=== PATIENT | female | born 1965 | race Hispanic/Latino ===

== ENCOUNTER 2017-05-25 12:26 | Inpatient (IN) | payer BC ==
[2017-05-25] VITALS (7 sets, daily range): BP systolic 129–149; BP diastolic 66–82
[~2017-05-25] VITALS: Ht 162.6 cm; Wt 136.3 kg
[2017-05-25] MEDS ORDERED: IOPAMIDOL-370 100 ML VIAL IV ONE (14:13)
[2017-05-25] MEDS ORDERED: LIDOCAINE HCL 2% 20ML ONE (14:14)
[2017-05-25] MEDS ORDERED: HEPARIN SODIUM 1000UNIT/ML 10ML VIAL ONE (14:14)
[2017-05-25] MEDS ORDERED: IOPAMIDOL-370 75 ML VIAL IV ONE (14:14)
[2017-05-25] MEDS ORDERED: BIVALIRUDIN 250 MG/VIAL IV ONE ×2 (14:19→15:01)
[2017-05-25] MEDS ORDERED: MIDAZOLAM HCL 1 MG/ML 2ML VIAL ONE (15:02)
[2017-05-25] MEDS ORDERED: ASPI-1012 PO (15:26)
[2017-05-25] MEDS ORDERED: ATOR10TA69 PO (15:26)
[2017-05-25] MEDS ORDERED: CLOP75TA32 PO (15:26)
[2017-05-25] MEDS ORDERED: PANT40TA25 PO (15:26)
[2017-05-25] MEDS ORDERED: METO25TA6 PO (15:26)
[2017-05-25] MEDS ORDERED: ISOS30TA6 PO (15:26)
[2017-05-25] MEDS ORDERED: INSU100V12 SQ ×2 (15:26→15:27)
[2017-05-25] MEDS ORDERED: FENTANYL CITRATE PF 50 MCG/1 ML 2ML VIAL ONE (15:44)
[2017-05-25] MEDS ORDERED: NITROGLYCERIN 50 MG/D5% WATER 1 BOT ONE (15:51)
[2017-05-25] MEDS ORDERED: LABETALOL HCL 5 MG/ML 20ML VIAL IV ONE (16:08)
[2017-05-25] MEDS ORDERED: ACETAMINOPHEN 325 MG TAB PO PRN (16:15)
[2017-05-25] MEDS ORDERED: PHARMACY COMMUNICATION MISC SCH ×2 (16:15→17:00)
[2017-05-25] MEDS ORDERED: BUMETANIDE 0.25 MG/ML 10 ML 80 ML IV SCH (16:30)
[2017-05-25] MEDS ORDERED: NITROGLYCERIN 50 MG/D5% WATER 250 BOT IV PRN (17:00)
[2017-05-25] MEDS ORDERED: DEXTROSE 50%-WATER 50 ML DISP.SYRIN IV PRN (17:00)
[2017-05-25] MEDS ORDERED: NITROGLYCERIN 0.4 MG SL TAB SL PRN (17:00)
[2017-05-25] MEDS ORDERED: GLUCAGON 1MG KIT 1 MG ML IM PRN (17:00)
[2017-05-25 18:05] LABS: ABG BASE EXCESS -0.5 mmol/L (-2.0-3.0); ABG HCO3 25.6 mmol/L (21.0-28.0); ABG OXYGEN SATURATION 91.9 % (95.0-99.0); ABG PCO2 48 mmHg (32-45)
[2017-05-25 19:58] LABS: CREATININE 2.8 mg/dL (0.5-1.5); MAGNESIUM 1.7 mg/dL (1.80-2.40); POTASSIUM 4.4 mmol/L (3.5-5.1)
[2017-05-25] MEDS ORDERED: METOPROLOL TARTRATE 25 MG TAB PO SCH (21:00)
[2017-05-25] MEDS: ATORVASTATIN CALCIUM 20 MG TABLET PO SCH (22:04)
[2017-05-25] MEDS: RANOLAZINE 500 MG TAB.SR.12H PO SCH (22:04)
[2017-05-25] MEDS: TICAGRELOR 90 MG TABLET PO SCH (22:04)
[2017-05-25] MEDS: INSULIN HUMULIN R 100 UNIT/ML 3ML SQ SCH (22:06)
[2017-05-25] MEDS: MORPHINE SULFATE 5 MG/ML VIAL IV PRN (23:36)
[2017-05-26] VITALS (24 sets, daily range): BP systolic 90–180; BP diastolic 47–98
[2017-05-26 04:07] LABS: ABG BASE EXCESS 3.2 mmol/L (-2.0-3.0); ABG HCO3 28.6 mmol/L (21.0-28.0); ABG OXYGEN SATURATION 87.9 % (95.0-99.0); ABG PCO2 46 mmHg (32-45)
[2017-05-26 04:08] LABS: HEMATOCRIT 28.3 % (36-48); MEAN CORPUSCULAR HEMOGLOBIN 30.4 pg (27.0-33.0); MEAN CORPUSCULAR HGB CONC 34.9 g/dL (32.0-36.0); MEAN CORPUSCULAR VOLUME 87.1 fL (79-99); NUCLEATED RED BLOOD CELLS 0.1 % (0.0-0.19); PLATELET COUNT (AUTO) 263 K/uL (130-400); RED BLOOD CELL COUNT(AUTO) 3.25 MIL/uL (4.00-5.50); RED CELL DISTRIBUTION WIDTH 12.8 % (11.0-15.5); WHITE BLOOD COUNT (AUTO) 8.2 K/uL (4.8-10.8)
[2017-05-26 04:15] LABS: CREATININE 2.5 mg/dL (0.5-1.5)
[2017-05-26 04:40] LABS: B-TYPE NATRIURETIC PEPTIDE 578 pg/mL (0-100)
[2017-05-26 05:14] LABS: PROTEIN,URINE RANDOM 129.9 mg/dL (0-11.9)
[2017-05-26] MEDS ORDERED: PANTOPRAZOLE SODIUM 40 MG TABLET.DR PO ONE (05:24)
[2017-05-26 05:58] LABS: BAND NEUTROPHILS % (MANUAL) 4 % (0-2); EOSINOPHILS % (MANUAL) 1 % (1-6); LYMPHOCYTES % (MANUAL) 16 % (22-44); MAN.DIFF COMMENT-IMPRESSION MANUAL DIFFERENTIAL; MONOCYTES % (MANUAL) 5 % (2-9); PLATELET MORPHOLOGY COMMENT ADEQUATE; REACTIVE LYMPHOCYTES 1 % (0-0); SEGMENTED NEUTROPHILS % 73 % (40-70)
[2017-05-26] MEDS: INSULIN HUMULIN R 100 UNIT/ML 3ML SQ SCH ×4 (06:05→20:46)
[2017-05-26] MEDS: ACETAMINOPHEN EXTRA STRENGTH 500 MG TABLET PO PRN (06:08)
[2017-05-26] MEDS: PANTOPRAZOLE SODIUM 40 MG TABLET.DR PO SCH (06:10)
[2017-05-26 08:15] LABS: ABG BASE EXCESS 1.5 mmol/L (-2.0-3.0); ABG HCO3 27.1 mmol/L (21.0-28.0); ABG OXYGEN SATURATION 94.2 % (95.0-99.0); ABG PCO2 46 mmHg (32-45)
[2017-05-26] MEDS ORDERED: ISOSORBIDE MONO 60 MG TAB.SR PO SCH (09:00)
[2017-05-26] MEDS: RANOLAZINE 500 MG TAB.SR.12H PO SCH ×2 (09:32→20:24)
[2017-05-26] MEDS: CARVEDILOL 12.5 MG TABLET PO SCH ×2 (09:32→20:25)
[2017-05-26] MEDS: HYDRALAZINE HCL 25 MG TABLET PO SCH ×3 (09:32→20:24)
[2017-05-26] MEDS: ASPIRIN 325 MG TABLET PO SCH (09:32)
[2017-05-26] MEDS: TICAGRELOR 90 MG TABLET PO SCH ×2 (09:32→20:24)
[2017-05-26] MEDS: ISOSORBIDE MONO 60 MG TAB.SR PO SCH (09:33)
[2017-05-26] MEDS: ENOXAPARIN SODIUM 40 MG/0.4 ML SYRINGE SQ SCH (09:33)
[2017-05-26 09:39] LABS: CREATINE KINASE MB 1.5 ng/mL (0.5-3.6)
[2017-05-26 09:40] LABS: TROPONIN I 1.51 ng/mL (0.00-0.06)
[2017-05-26 13:21] LABS: APPEARANCE,URINE Clear (CLEAR); BILIRUBIN,URINE Negative (NEGATIVE); COLOR,URINE Yellow (YELLOW); GLUCOSE, URINE (UA) Negative (NEGATIVE); KETONES,URINE Negative (NEGATIVE); LEUKOCYTE ESTERASE ,URINE Negative (NEGATIVE); NITRATE,URINE Negative (NEGATIVE); OCCULT BLOOD,URINE Small (NEGATIVE); PROTEIN,URINE POS 2+ (NEGATIVE); UROBILINOGEN,URINE 0.2 mg/dL (0.2-1.0)
[2017-05-26 13:32] LABS: BACTERIA,URINE Rare /HPF (None Seen); RBC,URINE 0-1 /HPF (0-1); SQUAMOUS EPITHELIAL CELL,UR Rare /LPF (0-2); WBC,URINE 0-1 /HPF (0-1)
[2017-05-26] MEDS: ATORVASTATIN CALCIUM 20 MG TABLET PO SCH (20:23)
[2017-05-26] MEDS ORDERED: INSULIN GLARGINE 100 UNITS/ML 10 ML VIAL SQ SCH (21:00)
[2017-05-27] VITALS (24 sets, daily range): BP systolic 129–182; BP diastolic 62–98
[2017-05-27] MEDS: ACETAMINOPHEN EXTRA STRENGTH 500 MG TABLET PO PRN (04:28)
[2017-05-27 04:43] LABS: HEMATOCRIT 29.4 % (36-48); MEAN CORPUSCULAR HEMOGLOBIN 29.8 pg (27.0-33.0); MEAN CORPUSCULAR HGB CONC 33.6 g/dL (32.0-36.0); MEAN CORPUSCULAR VOLUME 88.6 fL (79-99); PLATELET COUNT (AUTO) 269 K/uL (130-400); RED BLOOD CELL COUNT(AUTO) 3.32 MIL/uL (4.00-5.50); RED CELL DISTRIBUTION WIDTH 12.6 % (11.0-15.5); WHITE BLOOD COUNT (AUTO) 7.4 K/uL (4.8-10.8)
[2017-05-27 04:46] LABS: ALBUMIN 2.3 g/dL (3.5-5.0); BILIRUBIN,TOTAL 0.7 mg/dL (0.2-1.0); CREATININE 2.8 mg/dL (0.5-1.5); MAGNESIUM 1.5 mg/dL (1.80-2.40); PHOSPHORUS 4.1 mg/dL (2.5-4.9); POTASSIUM 3.7 mmol/L (3.5-5.1); TOTAL PROTEIN, SERUM 6.4 g/dL (6.0-8.3)
[2017-05-27 05:06] LABS: % IRON SATURATION 13.8 % (22-44)
[2017-05-27 05:39] LABS: BAND NEUTROPHILS % (MANUAL) 3 % (0-2); BASOPHILS % (MANUAL) 1 % (0-2); EOSINOPHILS % (MANUAL) 5 % (1-6); LYMPHOCYTES % (MANUAL) 21 % (22-44); MAN.DIFF COMMENT-IMPRESSION MANUAL DIFFERENTIAL; MONOCYTES % (MANUAL) 3 % (2-9); SEGMENTED NEUTROPHILS % 67 % (40-70)
[2017-05-27] MEDS ORDERED: TEMAZEPAM 7.5 MG CAPSULE PO PRN (06:15)
[2017-05-27] MEDS ORDERED: MAGNESIUM 2GM PREMIX 50ML 50 ML IV SCH (06:15)
[2017-05-27] MEDS: PANTOPRAZOLE SODIUM 40 MG TABLET.DR PO SCH (06:33)
[2017-05-27] MEDS ORDERED: INSULIN GLARGINE 100 UNITS/ML 10 ML VIAL SQ ONE (06:35)
[2017-05-27] MEDS: INSULIN HUMULIN R 100 UNIT/ML 3ML SQ SCH ×4 (06:37→21:32)
[2017-05-27] MEDS: INSULIN GLARGINE 100 UNITS/ML 10 ML VIAL SQ SCH ×2 (06:38→21:34)
[2017-05-27] MEDS: HYDRALAZINE HCL 25 MG TABLET PO SCH ×3 (08:34→21:30)
[2017-05-27] MEDS: RANOLAZINE 500 MG TAB.SR.12H PO SCH ×2 (08:35→21:31)
[2017-05-27] MEDS: CARVEDILOL 12.5 MG TABLET PO SCH ×2 (08:35→21:31)
[2017-05-27] MEDS: ISOSORBIDE MONO 60 MG TAB.SR PO SCH (08:35)
[2017-05-27] MEDS: TICAGRELOR 90 MG TABLET PO SCH ×2 (08:35→21:00)
[2017-05-27] MEDS: ASPIRIN 325 MG TABLET PO SCH (08:35)
[2017-05-27] MEDS: ENOXAPARIN SODIUM 40 MG/0.4 ML SYRINGE SQ SCH (08:36)
[2017-05-27] MEDS ORDERED: COMPOUND IV MISC 1 EACH IVSOLN MISC PRN (13:00)
[2017-05-27] MEDS: ACETYLCYSTEINE 600 MG CAPSULE PO SCH ×2 (13:55→21:31)
[2017-05-27] MEDS: BUMETANIDE 0.25 MG/ML 10 ML 40 ML IV SCH (18:48)
[2017-05-27] MEDS: ATORVASTATIN CALCIUM 20 MG TABLET PO SCH (21:31)
[2017-05-28] VITALS (22 sets, daily range): BP systolic 98–166; BP diastolic 45–93
[2017-05-28 04:00] LABS: CREATININE 2.6 mg/dL (0.5-1.5); MAGNESIUM 1.9 mg/dL (1.80-2.40); POTASSIUM 3.5 mmol/L (3.5-5.1)
[2017-05-28 04:01] LABS: HEMATOCRIT 30.7 % (36-48); INR 0.91 (0.85-1.15); MEAN CORPUSCULAR HEMOGLOBIN 29.4 pg (27.0-33.0); MEAN CORPUSCULAR HGB CONC 33.8 g/dL (32.0-36.0); MEAN CORPUSCULAR VOLUME 87.1 fL (79-99); NUCLEATED RED BLOOD CELLS 0.1 % (0.0-0.19); PARTIAL THROMBOPLASTIN TIME 30.3 SEC (26.3-35.5); PLATELET COUNT (AUTO) 285 K/uL (130-400); PROTHROMBIN TIME 9.6 SEC (9.6-11.6); RED BLOOD CELL COUNT(AUTO) 3.52 MIL/uL (4.00-5.50); RED CELL DISTRIBUTION WIDTH 12.9 % (11.0-15.5)
[2017-05-28] MEDS: INSULIN HUMULIN R 100 UNIT/ML 3ML SQ SCH ×4 (05:21→21:00)
[2017-05-28] MEDS: PANTOPRAZOLE SODIUM 40 MG TABLET.DR PO SCH (06:41)
[2017-05-28] MEDS: INSULIN GLARGINE 100 UNITS/ML 10 ML VIAL SQ SCH ×2 (06:42→22:18)
[2017-05-28] MEDS ORDERED: LIDOCAINE HCL 2% 20ML ONE (07:16)
[2017-05-28] MEDS ORDERED: IOPAMIDOL-370 100 ML VIAL IV ONE (07:16)
[2017-05-28] MEDS ORDERED: BIVALIRUDIN 250 MG/VIAL IV ONE (07:16)
[2017-05-28] MEDS ORDERED: FENTANYL CITRATE PF 50 MCG/1 ML 2ML VIAL ONE (08:09)
[2017-05-28] MEDS ORDERED: TICAGRELOR 90 MG TABLET ONE (08:24)
[2017-05-28] MEDS ORDERED: ASPIRIN 325MG EC TAB 325 MG TABLET.DR PO ONE (08:24)
[2017-05-28] MEDS ORDERED: LABETALOL 20 MG/4 ML DISP.SYRIN IV ONE ×2 (08:28→08:50)
[2017-05-28] MEDS ORDERED: LABETALOL HCL 5 MG/ML 20ML VIAL IV ONE (08:28)
[2017-05-28] MEDS ORDERED: NITROGLYCERIN 50 MG/D5% WATER 1 BOT ONE (08:52)
[2017-05-28] MEDS: TICAGRELOR 90 MG TABLET PO SCH ×2 (09:00→22:24)
[2017-05-28] MEDS ORDERED: ACETAMINOPHEN-CODEINE 300/30MG TAB PO PRN (09:15)
[2017-05-28] MEDS ORDERED: TEMAZEPAM 30 MG CAP PO PRN (09:15)
[2017-05-28] MEDS ORDERED: NITROGLYCERIN 50 MG/D5% WATER 1 BOT IV PRN (09:15)
[2017-05-28] MEDS: ISOSORBIDE MONO 60 MG TAB.SR PO SCH (10:09)
[2017-05-28] MEDS: HYDRALAZINE HCL 25 MG TABLET PO SCH ×2 (10:09→14:45)
[2017-05-28] MEDS: RANOLAZINE 500 MG TAB.SR.12H PO SCH ×2 (10:10→22:24)
[2017-05-28] MEDS: ACETYLCYSTEINE 600 MG CAPSULE PO SCH ×2 (10:10→22:24)
[2017-05-28] MEDS: CARVEDILOL 12.5 MG TABLET PO SCH ×2 (10:10→22:25)
[2017-05-28] MEDS: IRON SUCROSE COMPLEX 100 MG in SODIUM CHLORIDE 0.9% 50 ML IV SCH (10:23)
[2017-05-28] MEDS: ONDANSETRON HCL 4 MG/2 ML VIAL IVP PRN (10:51)
[2017-05-28] MEDS: MORPHINE SULFATE 5 MG/ML VIAL IV PRN (10:51)
[2017-05-28] MEDS ORDERED: SODIUM CHLORIDE 0.9% 1000ML 1,000 ML IV SCH (13:15)
[2017-05-28] MEDS: ACETAMINOPHEN-CODEINE 300/30MG TAB PO PRN ×2 (16:00→22:26)
[2017-05-28] MEDS: ATORVASTATIN CALCIUM 20 MG TABLET PO SCH (22:24)
[2017-05-29] MEDS: HYDRALAZINE HCL 25 MG TABLET PO SCH ×4 (00:26→20:38)
[2017-05-29] MEDS: ONDANSETRON HCL 4 MG/2 ML VIAL IVP PRN (02:23)
[2017-05-29] MEDS: MORPHINE SULFATE 5 MG/ML VIAL IV PRN (02:24)
[2017-05-29 03:00] VITALS: BP 120/69
[2017-05-29 04:17] LABS: HEMATOCRIT 30.7 % (36-48); MEAN CORPUSCULAR HEMOGLOBIN 29.5 pg (27.0-33.0); MEAN CORPUSCULAR HGB CONC 33.8 g/dL (32.0-36.0); MEAN CORPUSCULAR VOLUME 87.1 fL (79-99); NUCLEATED RED BLOOD CELLS 0.1 % (0.0-0.19); PLATELET COUNT (AUTO) 325 K/uL (130-400); RED BLOOD CELL COUNT(AUTO) 3.53 MIL/uL (4.00-5.50); RED CELL DISTRIBUTION WIDTH 12.8 % (11.0-15.5); WHITE BLOOD COUNT (AUTO) 7.1 K/uL (4.8-10.8)
[2017-05-29 04:44] LABS: CREATININE 3.1 mg/dL (0.5-1.5); POTASSIUM 3.8 mmol/L (3.5-5.1)
[2017-05-29] MEDS: INSULIN HUMULIN R 100 UNIT/ML 3ML SQ SCH ×4 (06:21→20:38)
[2017-05-29] MEDS: INSULIN GLARGINE 100 UNITS/ML 10 ML VIAL SQ SCH ×2 (06:26→20:47)
[2017-05-29] MEDS: PANTOPRAZOLE SODIUM 40 MG TABLET.DR PO SCH (06:34)
[2017-05-29 07:00] VITALS: BP 128/76
[2017-05-29] MEDS: ASPIRIN 81MG TAB.CHEW PO SCH (07:58)
[2017-05-29] MEDS: ISOSORBIDE MONO 60 MG TAB.SR PO SCH (07:58)
[2017-05-29] MEDS: RANOLAZINE 500 MG TAB.SR.12H PO SCH (07:58)
[2017-05-29] MEDS: TICAGRELOR 90 MG TABLET PO SCH ×2 (07:59→20:35)
[2017-05-29] MEDS: CARVEDILOL 12.5 MG TABLET PO SCH ×2 (07:59→20:36)
[2017-05-29] MEDS: ACETYLCYSTEINE 600 MG CAPSULE PO SCH ×2 (07:59→20:35)
[2017-05-29] MEDS: IRON SUCROSE COMPLEX 100 MG in SODIUM CHLORIDE 0.9% 50 ML IV SCH (09:00)
[2017-05-29 11:00] VITALS: BP 155/96
[2017-05-29] MEDS: BUMETANIDE 0.25 MG/ML 10 ML 40 ML IV SCH (11:21)
[2017-05-29 16:38] VITALS: BP 133/72
[2017-05-29 19:19] VITALS: BP 143/85
[2017-05-29] MEDS: ATORVASTATIN CALCIUM 20 MG TABLET PO SCH (20:35)
[2017-05-29] MEDS ORDERED: MORPHINE SULFATE 4 MG/1ML SYG ONE (20:53)
[2017-05-29] MEDS ORDERED: FUROSEMIDE 80 MG TABLET PO SCH (21:00)
[2017-05-29 23:24] VITALS: BP 166/88
[2017-05-30 03:14] VITALS: BP 144/74
[2017-05-30 04:40] LABS: HEMATOCRIT 29.3 % (36-48); MEAN CORPUSCULAR HEMOGLOBIN 29.7 pg (27.0-33.0); MEAN CORPUSCULAR HGB CONC 34.2 g/dL (32.0-36.0); PLATELET COUNT (AUTO) 317 K/uL (130-400); RED BLOOD CELL COUNT(AUTO) 3.37 MIL/uL (4.00-5.50)
[2017-05-30 05:02] LABS: CREATININE 2.9 mg/dL (0.5-1.5); POTASSIUM 3.6 mmol/L (3.5-5.1)
[2017-05-30] MEDS: INSULIN HUMULIN R 100 UNIT/ML 3ML SQ SCH ×4 (05:47→20:19)
[2017-05-30] MEDS: PANTOPRAZOLE SODIUM 40 MG TABLET.DR PO SCH (06:31)
[2017-05-30] MEDS: INSULIN GLARGINE 100 UNITS/ML 10 ML VIAL SQ SCH ×2 (06:32→21:42)
[2017-05-30] MEDS: CARVEDILOL 12.5 MG TABLET PO SCH ×3 (07:24→21:25)
[2017-05-30] MEDS: FOLIC ACID/VITAMIN B COMP W-C 1 MG CAPSULE PO SCH (07:24)
[2017-05-30] MEDS: HYDRALAZINE HCL 25 MG TABLET PO SCH ×3 (07:24→21:26)
[2017-05-30] MEDS: ASPIRIN 81MG TAB.CHEW PO SCH (07:24)
[2017-05-30] MEDS: TICAGRELOR 90 MG TABLET PO SCH ×2 (07:24→21:26)
[2017-05-30] MEDS: ACETYLCYSTEINE 600 MG CAPSULE PO SCH ×2 (07:24→21:27)
[2017-05-30] MEDS: IRON SUCROSE COMPLEX 100 MG in SODIUM CHLORIDE 0.9% 50 ML IV SCH (07:25)
[2017-05-30] MEDS: ISOSORBIDE MONO 60 MG TAB.SR PO SCH (07:25)
[2017-05-30 07:50] VITALS: BP 160/87
[2017-05-30] MEDS: AMLODIPINE BESYLATE 5 MG TAB PO SCH (09:13)
[2017-05-30] MEDS: ENOXAPARIN SODIUM 40 MG/0.4 ML SYRINGE SQ SCH (10:13)
[2017-05-30 11:00] VITALS: BP 122/64
[2017-05-30 14:40] VITALS: BP 137/48
[2017-05-30 19:00] VITALS: BP 142/77
[2017-05-30] MEDS: ATORVASTATIN CALCIUM 20 MG TABLET PO SCH (21:24)
[2017-05-31] VITALS (7 sets, daily range): BP systolic 101–145; BP diastolic 56–81
[2017-05-31 04:42] LABS: HEMATOCRIT 29.2 % (36-48); MEAN CORPUSCULAR HEMOGLOBIN 29.8 pg (27.0-33.0); MEAN CORPUSCULAR VOLUME 87.7 fL (79-99); PLATELET COUNT (AUTO) 301 K/uL (130-400); RED BLOOD CELL COUNT(AUTO) 3.33 MIL/uL (4.00-5.50); RED CELL DISTRIBUTION WIDTH 12.9 % (11.0-15.5); WHITE BLOOD COUNT (AUTO) 7.9 K/uL (4.8-10.8)
[2017-05-31 04:51] LABS: POTASSIUM 3.3 mmol/L (3.5-5.1)
[2017-05-31] MEDS: INSULIN HUMULIN R 100 UNIT/ML 3ML SQ SCH ×4 (06:14→21:51)
[2017-05-31] MEDS: PANTOPRAZOLE SODIUM 40 MG TABLET.DR PO SCH (06:36)
[2017-05-31] MEDS: INSULIN GLARGINE 100 UNITS/ML 10 ML VIAL SQ SCH ×2 (06:41→21:50)
[2017-05-31] MEDS: ISOSORBIDE MONO 60 MG TAB.SR PO SCH (09:00)
[2017-05-31] MEDS: TICAGRELOR 90 MG TABLET PO SCH ×2 (09:00→21:38)
[2017-05-31] MEDS: ACETYLCYSTEINE 600 MG CAPSULE PO SCH (09:00)
[2017-05-31] MEDS: ASPIRIN 81MG TAB.CHEW PO SCH (09:00)
[2017-05-31] MEDS: HYDRALAZINE HCL 25 MG TABLET PO SCH ×3 (09:00→21:37)
[2017-05-31] MEDS: FOLIC ACID/VITAMIN B COMP W-C 1 MG CAPSULE PO SCH (09:00)
[2017-05-31] MEDS: AMLODIPINE BESYLATE 5 MG TAB PO SCH (09:00)
[2017-05-31] MEDS: CARVEDILOL 12.5 MG TABLET PO SCH ×2 (09:01→21:38)
[2017-05-31] MEDS: ENOXAPARIN SODIUM 40 MG/0.4 ML SYRINGE SQ SCH (09:03)
[2017-05-31] MEDS: IRON SUCROSE COMPLEX 100 MG in SODIUM CHLORIDE 0.9% 50 ML IV SCH (09:53)
[2017-05-31] MEDS ORDERED: SODIUM CHLORIDE 0.9% 250 ML IV ONE (09:58)
[2017-05-31] MEDS ORDERED: MAGNESIUM CITRATE 296 ML SOLUTION PO PRN (10:30)
[2017-05-31] MEDS: ATORVASTATIN CALCIUM 20 MG TABLET PO SCH (21:38)
[2017-06-01 03:30] VITALS: BP 127/70
[2017-06-01 06:14] LABS: CREATININE 2.9 mg/dL (0.5-1.5); MAGNESIUM 2.3 mg/dL (1.80-2.40)
[2017-06-01] MEDS: INSULIN HUMULIN R 100 UNIT/ML 3ML SQ SCH ×4 (06:24→20:39)
[2017-06-01] MEDS: PANTOPRAZOLE SODIUM 40 MG TABLET.DR PO SCH (06:59)
[2017-06-01] MEDS: INSULIN GLARGINE 100 UNITS/ML 10 ML VIAL SQ SCH ×2 (06:59→20:45)
[2017-06-01 07:30] VITALS: BP 148/79
[2017-06-01] MEDS ORDERED: FUROSEMIDE 80 MG TABLET PO SCH (09:00)
[2017-06-01] MEDS ORDERED: POTASSIUM CHLORIDE 10% ELIXIR 20 MEQ/15 ML UDCUP PO SCH (09:30)
[2017-06-01] MEDS: ASPIRIN 81MG TAB.CHEW PO SCH (10:13)
[2017-06-01] MEDS: CARVEDILOL 12.5 MG TABLET PO SCH ×2 (10:14→20:34)
[2017-06-01] MEDS: FUROSEMIDE 80 MG TABLET PO SCH (10:14)
[2017-06-01] MEDS: FOLIC ACID/VITAMIN B COMP W-C 1 MG CAPSULE PO SCH (10:14)
[2017-06-01] MEDS: TICAGRELOR 90 MG TABLET PO SCH ×2 (10:14→20:33)
[2017-06-01] MEDS: HYDRALAZINE HCL 25 MG TABLET PO SCH ×3 (10:15→20:34)
[2017-06-01] MEDS: AMLODIPINE BESYLATE 5 MG TAB PO SCH (10:15)
[2017-06-01] MEDS: ISOSORBIDE MONO 60 MG TAB.SR PO SCH (10:15)
[2017-06-01] MEDS: ENOXAPARIN SODIUM 40 MG/0.4 ML SYRINGE SQ SCH (10:16)
[2017-06-01 11:00] VITALS: BP 134/75
[2017-06-01 16:00] VITALS: BP 133/74
[2017-06-01] MEDS: IRON SUCROSE COMPLEX 100 MG in SODIUM CHLORIDE 0.9% 50 ML IV SCH (16:54)
[2017-06-01 19:00] VITALS: BP 131/71
[2017-06-01] MEDS: ATORVASTATIN CALCIUM 20 MG TABLET PO SCH (20:33)
[2017-06-01] MEDS ORDERED: POTASSIUM CHLORIDE 10% ELIXIR 20 MEQ/15 ML UDCUP PO ONE (21:00)
[2017-06-01 23:00] VITALS: BP 136/70
[2017-06-02 03:00] VITALS: BP 127/60
[2017-06-02 05:37] LABS: CREATININE 2.7 mg/dL (0.5-1.5); POTASSIUM 3.6 mmol/L (3.5-5.1)
[2017-06-02] MEDS: INSULIN HUMULIN R 100 UNIT/ML 3ML SQ SCH ×4 (07:12→21:00)
[2017-06-02 07:20] VITALS: BP 129/74
[2017-06-02] MEDS: ENOXAPARIN SODIUM 40 MG/0.4 ML SYRINGE SQ SCH (09:00)
[2017-06-02] MEDS: HYDRALAZINE HCL 25 MG TABLET PO SCH ×3 (09:51→21:42)
[2017-06-02] MEDS: TICAGRELOR 90 MG TABLET PO SCH ×2 (09:51→21:40)
[2017-06-02] MEDS: ASPIRIN 81MG TAB.CHEW PO SCH (09:51)
[2017-06-02] MEDS: AMLODIPINE BESYLATE 5 MG TAB PO SCH (09:52)
[2017-06-02] MEDS: ISOSORBIDE MONO 60 MG TAB.SR PO SCH (09:52)
[2017-06-02] MEDS: FOLIC ACID/VITAMIN B COMP W-C 1 MG CAPSULE PO SCH (09:53)
[2017-06-02] MEDS: CARVEDILOL 12.5 MG TABLET PO SCH ×2 (09:53→21:41)
[2017-06-02] MEDS: FUROSEMIDE 80 MG TABLET PO SCH (09:54)
[2017-06-02] MEDS: PANTOPRAZOLE SODIUM 40 MG TABLET.DR PO SCH (09:57)
[2017-06-02] MEDS: INSULIN GLARGINE 100 UNITS/ML 10 ML VIAL SQ SCH ×2 (10:01→21:46)
[2017-06-02] MEDS: IRON SUCROSE COMPLEX 100 MG in SODIUM CHLORIDE 0.9% 50 ML IV SCH (10:27)
[2017-06-02 12:00] VITALS: BP 137/73
[2017-06-02 15:53] VITALS: BP 136/68
[2017-06-02] MEDS: FUROSEMIDE 40 MG TABLET PO SCH (16:29)
[2017-06-02 19:00] VITALS: BP 136/70
[2017-06-02] MEDS: ATORVASTATIN CALCIUM 20 MG TABLET PO SCH (21:40)
[2017-06-02 23:00] VITALS: BP 111/69
[2017-06-03] MEDS: ACETAMINOPHEN EXTRA STRENGTH 500 MG TABLET PO PRN (02:57)
[2017-06-03 03:00] VITALS: BP 140/72
[2017-06-03] MEDS: INSULIN HUMULIN R 100 UNIT/ML 3ML SQ SCH ×3 (06:27→16:30)
[2017-06-03 08:00] VITALS: BP 108/72
[2017-06-03] MEDS: TICAGRELOR 90 MG TABLET PO SCH (08:57)
[2017-06-03] MEDS: HYDRALAZINE HCL 25 MG TABLET PO SCH ×2 (08:57→14:56)
[2017-06-03] MEDS: ASPIRIN 81MG TAB.CHEW PO SCH (08:58)
[2017-06-03] MEDS: ISOSORBIDE MONO 60 MG TAB.SR PO SCH (08:58)
[2017-06-03] MEDS: FOLIC ACID/VITAMIN B COMP W-C 1 MG CAPSULE PO SCH (08:58)
[2017-06-03] MEDS: FUROSEMIDE 40 MG TABLET PO SCH ×2 (08:58→17:41)
[2017-06-03] MEDS: AMLODIPINE BESYLATE 5 MG TAB PO SCH (09:00)
[2017-06-03] MEDS: CARVEDILOL 12.5 MG TABLET PO SCH (09:00)
[2017-06-03] MEDS: IRON SUCROSE COMPLEX 100 MG in SODIUM CHLORIDE 0.9% 50 ML IV SCH (09:06)
[2017-06-03] MEDS: PANTOPRAZOLE SODIUM 40 MG TABLET.DR PO SCH (09:06)
[2017-06-03] MEDS: INSULIN GLARGINE 100 UNITS/ML 10 ML VIAL SQ SCH (09:14)
[2017-06-03 12:00] VITALS: BP 130/69
[2017-06-03 16:00] VITALS: BP 126/66
== END 2017-06-03 18:30 | DRG 246 ==
LOC: 2DH 13:45 → 2CH 17:46 → 2DH 05-28 19:44 → 3CH 05-30 14:25
PROVIDERS: ADMIT Internal Medicine; ATTEND Internal Medicine
PROC: 4A023N7 Measurement of Cardiac Sampling and Pressure, Left Heart, Percutaneous Approach (ICD-10-PCS; principal; 2017-05-25)
PROC: B2111ZZ Fluoroscopy of Multiple Coronary Arteries using Low Osmolar Contrast (ICD-10-PCS; 2017-05-25)
PROC: B2131ZZ Fluoroscopy of Multiple Coronary Artery Bypass Grafts using Low Osmolar Contrast (ICD-10-PCS; 2017-05-25)
PROC: B41F1ZZ Fluoroscopy of Right Lower Extremity Arteries using Low Osmolar Contrast (ICD-10-PCS; 2017-05-25)
PROC: 5A09357 Assistance with Respiratory Ventilation, Less than 24 Consecutive Hours, Continuous Positive Airway Pressure (ICD-10-PCS; 2017-05-25)
PROC: 5A09357 Assistance with Respiratory Ventilation, Less than 24 Consecutive Hours, Continuous Positive Airway Pressure (ICD-10-PCS; 2017-05-25)
PROC: 5A09357 Assistance with Respiratory Ventilation, Less than 24 Consecutive Hours, Continuous Positive Airway Pressure (ICD-10-PCS; 2017-05-25)
PROC: 5A09357 Assistance with Respiratory Ventilation, Less than 24 Consecutive Hours, Continuous Positive Airway Pressure (ICD-10-PCS; 2017-05-25)
PROC: 5A09357 Assistance with Respiratory Ventilation, Less than 24 Consecutive Hours, Continuous Positive Airway Pressure (ICD-10-PCS; 2017-05-25)
PROC: 027034Z Dilation of Coronary Artery, One Artery with Drug-eluting Intraluminal Device, Percutaneous Approach (ICD-10-PCS; 2017-05-28)
DX: I21.4 Non-ST elevation (NSTEMI) myocardial infarction (principal); J96.01 Acute respiratory failure with hypoxia; I26.99 Other pulmonary embolism without acute cor pulmonale; N18.4 Chronic kidney disease, stage 4 (severe); J96.02 Acute respiratory failure with hypercapnia; I50.43 Acute on chronic combined systolic (congestive) and diastolic (congestive) heart failure; N17.9 Acute kidney failure, unspecified; I25.810 Atherosclerosis of coronary artery bypass graft(s) without angina pectoris; I13.0 Hypertensive heart and chronic kidney disease with heart failure and stage 1 through stage 4 chronic kidney disease, or unspecified chronic kidney disease; E66.2 Morbid (severe) obesity with alveolar hypoventilation; Z68.43 Body mass index [BMI] 50.0-59.9, adult; I16.1 Hypertensive emergency; I25.110 Atherosclerotic heart disease of native coronary artery with unstable angina pectoris; E11.21 Type 2 diabetes mellitus with diabetic nephropathy; E11.51 Type 2 diabetes mellitus with diabetic peripheral angiopathy without gangrene; D64.9 Anemia, unspecified; E11.22 Type 2 diabetes mellitus with diabetic chronic kidney disease; E11.649 Type 2 diabetes mellitus with hypoglycemia without coma; E11.65 Type 2 diabetes mellitus with hyperglycemia; E78.5 Hyperlipidemia, unspecified; E87.6 Hypokalemia; I25.5 Ischemic cardiomyopathy; K59.00 Constipation, unspecified; Z79.01 Long term (current) use of anticoagulants; Z79.82 Long term (current) use of aspirin; Z79.899 Other long term (current) drug therapy; Z82.49 Family history of ischemic heart disease and other diseases of the circulatory system; Z86.718 Personal history of other venous thrombosis and embolism; Z86.73 Personal history of transient ischemic attack (TIA), and cerebral infarction without residual deficits; Z91.19 Patient's noncompliance with other medical treatment and regimen; F32.9 Major depressive disorder, single episode, unspecified; F41.9 Anxiety disorder, unspecified; G43.909 Migraine, unspecified, not intractable, without status migrainosus; Z90.49 Acquired absence of other specified parts of digestive tract
CPT/HCPCS: 36415; 36600; 71045; 76770; 80048; 80053; 80061; 81001; 82550; 82553; 82570; 82728; 82803; 82948; 83540; 83550; 83735; 83874; 83880; 84100; 84156; 84484; 85025; 85027; 85610; 85730; 93005; 93306; 93454; 93459; 94660; 94760; 99152; 99153; C1725; C1760; C1769; C1887; C1894; C9600; J0583; J1644; J1650; J1756; J1815; J2250; J2270; J2405; J3010; J3475; J3490; J7030; Q9967